=== PATIENT | female | born 1975 | race African-American/Black ===

== ENCOUNTER 2016-11-28 17:07 | Emergency (ER) | payer SELFPAY ==
[~2016-11-28] VITALS: Ht 149.9 cm; Wt 68.0 kg
[~2016-11-28 17:07] MED LIST: CIPR-9 PO
[2016-11-28 17:09] VITALS: BP 147/81; PULSE 76; RESP 20; TEMP 98.3; O2SAT 97
[2016-11-28] MEDS ORDERED: SODIUM CHLORIDE 0.9% FLUSH 5 ML FLUSH IVF PRN (18:00)
[2016-11-28] MEDS ORDERED: cefTRIAXone INJ 1,000 MG in SODIUM CHLORIDE 0.9% INJ 100 ML IV ONE (18:00)
[2016-11-28] MEDS ORDERED: KETOROLAC TROMETHAMINE 30 MG/ML (IVP) VIAL IVP ONE (18:00)
--- NOTE | 2016-11-28 18:25 | PD ---
HPI Chief Complaint: Eye Problems/Injury Time Seen by Provider: 18:15 Travel History International Travel<30 days: No Contact w/Intl Traveler<30days: No Traveled to known affect area: No History of Present Illness HPI 41-year-old female coming in with four-day history of right eye pain, swelling, and drainage. Patient states her is currently being treated for conjunctivitis with an antibiotic ointment. Patient states she started with symptoms 4 days ago but got suddenly worse in the last 24 hours. Patient has discomfort in both eyes but more the right than the left. Both lower eyelids are swollen and erythematous to the point of swollen shut. There is purulent drainage from the eye. Patient states she has blurry vision from that eye. Patient states she has pain in the right protestant and forehead extending down into the right neck. Patient has had chills but is unsure fever. She denies throat or difficulty swallowing. She denies dental pain. She denies ear pain. She denies rash on the scalp. She denies nausea, vomiting, or diarrhea. She denies cough. She is allergic to Tylenol with codeine and Vicodin. PFSH Past Medical History Hypertension: Yes (PREV HX, NO MEDS CURRENTLY) Tetanus Vaccination: Unknown Influenza Vaccination: No ?: Not LMP: 10/31/16 : 2 Para: 2 Tubal Ligation: Yes Past Surgical History Section: Yes (X 2) Cholecystectomy: Yes Gynecologic Surgery: Yes (OVARY AND TUBE REMOVED FROM ONE SIDE, NOT SURE WHICH) Social History Alcohol Use: No Tobacco Use: Yes (1/2 PPD) Substance Use: Yes (MARIJUANA OCCASIONALLY) Allergies-Medications (Allergen,Severity, Reaction): Coded Allergies: Tylenol/Codeine (Verified Adverse Reaction, Severe, 11/28/16) GI CRAMPING Vicodin (Verified Adverse Reaction, Severe, 11/28/16) GI CRAMPING Reported Meds & Prescriptions Reported Meds & Active Scripts Active No Active Prescriptions or Reported Medications Review of Systems General / Constitutional: Positive: Chills, No: Fever Eyes: Positive: Blurred Vision, Photophobia, Drainage, Redness, Pain, No: Foreign Body Sensation, Tearing, Blind Spots, Visual changes, Blindness, Other HENT: Positive: Headaches, No: Vertigo, Lightheadedness, Sore Throat, Rhinitis , Rhinorrhea, Congestion, Nosebleed, Neck Stiffness, Neck Pain, Ear Discharge, Earache Cardiovascular: No: Chest Pain or Discomfort Respiratory: No: Cough, Shortness of Breath, Wheezing Gastrointestinal: No: Nausea, Vomiting, Diarrhea, Abdominal Pain Genitourinary: No: Dysuria Musculoskeletal: No: Pain Skin: No Rash Neurologic: No: Weakness Psychiatric: No: Depression Endocrine: No: Polydipsia Hematologic/Lymphatic: No: Easy Bruising Physical Exam Narrative GENERAL: Patient is an mild to moderate distress. SKIN: Warm and dry. Normal color. Normal turgor. Both upper and lower eyelids of the right eye are erythematous and swollen. HEAD: Atraumatic. Normocephalic. Patient complains of tenderness with palpation to the right forehead and temporal region extending into the lateral maxillary cheek. EYES: Pupils equal and round. No scleral icterus. Patient has severe conjunctival injection and swelling of the right eye with what appears to be some conjunctival hematoma. There is purulent drainage from the right eye. The cornea appears clear, and the pupil is reactive. There is no ulcerations appreciated. The left eye has injected conjunctiva, but no significant swelling or drainage noted at this time. ENT: No nasal bleeding or discharge. Mucous membranes pink and moist. TMs are clear bilaterally. Pharynx is clear. No significant lymphadenopathy. NECK: Trachea midline. No JVD. Neck is supple and nontender. No significant lymphadenopathy. CARDIOVASCULAR: Regular rate and rhythm. No murmurs appreciated this time. RESPIRATORY: No accessory muscle use. Clear to auscultation. Breath sounds equal bilaterally. GASTROINTESTINAL: Abdomen soft, non-tender, nondistended. Hepatic and splenic margins not palpable. MUSCULOSKELETAL: Extremities without clubbing, cyanosis, or edema. No obvious deformities. NEUROLOGICAL: Awake and alert. No obvious cranial nerve deficits. Motor grossly within normal limits. Five out of 5 muscle strength in the arms and legs. Normal speech. PSYCHIATRIC: Appropriate mood and affect; insight and judgment normal. Data Data Last Documented VS Vital Signs Date Time Temp Pulse Resp B/P Pulse Ox O2 Delivery O2 Flow Rate FiO2 11/28/16 17:09 98.3 76 20 147/81 97 Room Air Orders Complete Blood Count With Diff (11/28/16 17:54) Comprehensive Metabolic Panel (11/28/16 17:54) Lactic Acid (11/28/16 17:54) Prothrombin Time / Inr (Pt) (11/28/16 17:54) Act Partial Throm Time (Ptt) (11/28/16 17:54) Iv Access Insert/Monitor (11/28/16 17:54) Ecg Monitoring (11/28/16 17:54) Oximetry (11/28/16 17:54) NPO (11/28/16 17:54) Sodium Chloride 0.9% Flush (Ns Flush) (11/28/16 18:00) Ketorolac Inj (Toradol Inj) (11/28/16 18:00) Ct Facial Bones W Iv Contrast (11/28/16 ) Blood Culture (11/28/16 17:54) Ceftriaxone Inj (Rocephin Inj) (11/28/16 18:00) Iohexol 350 Inj (Omnipaque 350 Inj) (11/28/16 18:43) Labs Laboratory Tests Test 11/28/16 18:20 White Blood Count 7.3 TH/MM3 Red Blood Count 4.49 MIL/MM3 Hemoglobin 14.4 GM/DL Hematocrit 42.0 % Mean Corpuscular Volume 93.6 FL Mean Corpuscular Hemoglobin 32.2 PG Mean Corpuscular Hemoglobin 34.4 % Concent Red Cell Distribution Width 13.9 % Platelet Count 260 TH/MM3 Mean Platelet Volume 7.9 FL Neutrophils (%) (Auto) 52.1 % Lymphocytes (%) (Auto) 38.5 % Monocytes (%) (Auto) 8.6 % Eosinophils (%) (Auto) 0.5 % Basophils (%) (Auto) 0.3 % Neutrophils # (Auto) 3.8 TH/MM3 Lymphocytes # (Auto) 2.8 TH/MM3 Monocytes # (Auto) 0.6 TH/MM3 Eosinophils # (Auto) 0.0 TH/MM3 Basophils # (Auto) 0.0 TH/MM3 CBC Comment DIFF FINAL Differential Comment MDM Medical Decision Making Medical Screen Exam Complete: Yes Emergency Medical Condition: Yes Differential Diagnosis Severe right eye conjunctivitis. Retro-orbital abscess. Facial cellulitis. Possible shingles in the eye. Risk of sepsis. Narrative Course Patient is medically stable although uncomfortable on first exam. Patient is discussed and examined with Dr. Anderson. Labs ordered including CBC, CMP, lactic acid, blood cultures 2, and chlamydia culture of the right eye. IV access is obtained patient is given 1000 mg Rocephin IV as well as [address] of the facial bones with IV contrast is ordered to rule out retro-orbital abscess. Dr. Covington is the head of [employer] special education teacher this evening. I plan to call him once I get the labs and CT results. 1900 hrs. care is given over to Bandar Meza PAC. Patient is discussed and CT scan is discussed as well. Reassessment of the patient at that time shows right actually look improved after the Rocephin and ketorolac. Patient's disposition will be determined by Bandar Meza PAC. Scripts No Active Prescriptions or Reported Meds Condition: Stable Edwin Salinas Nov 28, 2016 18:25
[2016-11-28] MEDS ORDERED: IOHEXOL 350 MG/ML 10 ML VIAL (for RAD DIAG) IV ONE (18:43)
[2016-11-28 18:53] LABS: AUTOMATED NEUTROPHIL # 3.8 TH/MM3 (1.8-7.7); BASOPHIL % 0.3 % (0.0-2.0); EOSINOPHIL % 0.5 % (0.0-4.0); HEMO FLAGS DIFF FINAL; LYMPH % 38.5 % (9.0-44.0); LYMPHOCYTE # 2.8 TH/MM3 (1.0-4.8); MEAN CELL VOLUME 93.6 FL (80.0-100.0); MEAN CORPUSCULAR HEMOGLOBIN 32.2 PG (27.0-34.0); MEAN CORPUSCULAR HGB CONC 34.4 % (32.0-36.0); MONO % 8.6 % (0.0-8.0); NEUT % 52.1 % (16.0-70.0); PLATELET COUNT 260 TH/MM3 (150-450); RED BLOOD COUNT 4.49 MIL/MM3 (4.00-5.30); RED CELL DISTRIBUTION WIDTH 13.9 % (11.6-17.2); WHITE BLOOD COUNT 7.3 TH/MM3 (4.0-11.0)
--- NOTE | 2016-11-28 18:56 | RADRPT ---
EXAM DATE/TIME: 11/28/2016 18:38 [facility] COMPARISON: No previous studies available for comparison. INDICATIONS : Right-sided facial swelling around eye with drainage. IV CONTRAST: 75 cc Omnipaque 350 (iohexol) IV RADIATION DOSE: 38.16 CTDIvol (mGy) MEDICAL HISTORY : None SURGICAL HISTORY : None. ENCOUNTER: Initial ACUITY: 3 days PAIN SCALE: 4/10 LOCATION: Right distal TECHNIQUE: Volumetric scanning of the facial bones was performed. Using automated exposure control and adjustme nt of the mA and/or kV according to patient size, radiation dose was kept as low as reasonably achiev able to obtain optimal diagnostic quality images. FINDINGS: There is preseptal swelling on the right side without evidence for post septal extension. There is mi ld mucoperiosteal thickening within the left sphenoid sinus and the rest of the sinuses are clear. Th ere are a few slightly prominent lymph nodes on the right side the largest one measures 1.4 cm in siz e in the submandibular location may be reactive. The submandibular glands, parotid and thyroid glands appear grossly intact. No definite fracture is seen for technique. CONCLUSION: Preseptal swelling on the right without evidence for abscess or post septal extension and probable re active lymph nodes on the right side. Skylar Hardin MD on November 28, 2016 at 18:51 Board Certified Radiologist. This report was verified electronically.
[2016-11-28 19:09] LABS: APTT (PATIENT) 27.1 SEC (24.3-30.1); INTERNATIONAL NORMALIZED RATIO 0.9 RATIO
[2016-11-28 19:31] LABS: BICARBONATE 18.5 MEQ/L (21.0-32.0); TOTAL BILIRUBIN ADULT 0.2 MG/DL (0.2-1.0)
--- NOTE | 2016-11-28 19:33 | PD ---
Data Data Last Documented VS Vital Signs Date Time Temp Pulse Resp B/P Pulse Ox O2 Delivery O2 Flow Rate FiO2 11/29/16 00:08 79 17 147/82 98 11/28/16 17:09 98.3 Room Air Orders Complete Blood Count With Diff (11/28/16 17:54) Comprehensive Metabolic Panel (11/28/16 17:54) Lactic Acid (11/28/16 17:54) Prothrombin Time / Inr (Pt) (11/28/16 17:54) Act Partial Throm Time (Ptt) (11/28/16 17:54) Iv Access Insert/Monitor (11/28/16 17:54) Ecg Monitoring (11/28/16 17:54) Oximetry (11/28/16 17:54) NPO (11/28/16 17:54) Sodium Chloride 0.9% Flush (Ns Flush) (11/28/16 18:00) Ketorolac Inj (Toradol Inj) (11/28/16 18:00) Ct Facial Bones W Iv Contrast (11/28/16 ) Blood Culture (11/28/16 17:54) Ceftriaxone Inj (Rocephin Inj) (11/28/16 18:00) Iohexol 350 Inj (Omnipaque 350 Inj) (11/28/16 18:43) Gc And Chlamydia Pcr (11/28/16 19:33) Basic Metabolic Panel (Bmp) (11/28/16 19:57) Magnesium (Mg) (11/28/16 20:06) Diphenhydramine Inj (Benadryl Inj) (11/28/16 21:00) Dexamethasone Inj (Decadron Inj) (11/28/16 21:00) Mandatory Outpatient Referral (11/29/16 00:08) Labs Laboratory Tests Test 11/28/16 11/28/16 11/28/16 18:20 19:45 20:30 White Blood Count 7.3 TH/MM3 Red Blood Count 4.49 MIL/MM3 Hemoglobin 14.4 GM/DL Hematocrit 42.0 % Mean Corpuscular Volume 93.6 FL Mean Corpuscular Hemoglobin 32.2 PG Mean Corpuscular Hemoglobin 34.4 % Concent Red Cell Distribution Width 13.9 % Platelet Count 260 TH/MM3 Mean Platelet Volume 7.9 FL Neutrophils (%) (Auto) 52.1 % Lymphocytes (%) (Auto) 38.5 % Monocytes (%) (Auto) 8.6 % Eosinophils (%) (Auto) 0.5 % Basophils (%) (Auto) 0.3 % Neutrophils # (Auto) 3.8 TH/MM3 Lymphocytes # (Auto) 2.8 TH/MM3 Monocytes # (Auto) 0.6 TH/MM3 Eosinophils # (Auto) 0.0 TH/MM3 Basophils # (Auto) 0.0 TH/MM3 CBC Comment DIFF FINAL Differential Comment Prothrombin Time 10.0 SEC Prothromb Time International 0.9 RATIO Ratio Activated Partial 27.1 SEC Thromboplast Time Sodium Level 143 MEQ/L 139 MEQ/L Potassium Level 2.8 MEQ/L 3.5 MEQ/L Chloride Level 115 MEQ/L 108 MEQ/L Carbon Dioxide Level 18.5 MEQ/L 24.0 MEQ/L Anion Gap 10 MEQ/L 7 MEQ/L Blood Urea Nitrogen 5 MG/DL 7 MG/DL Creatinine 0.44 MG/DL 0.62 MG/DL Estimat Glomerular Filtration 189 ML/MIN 127 ML/MIN Rate Random Glucose 70 MG/DL 82 MG/DL Lactic Acid Level 0.8 mmol/L Calcium Level 6.6 MG/DL 8.5 MG/DL Protein Corrected Calcium 7.4 MG/DL Total Bilirubin 0.2 MG/DL Aspartate Amino Transf 11 U/L (AST/SGOT) Alanine Aminotransferase 22 U/L (ALT/SGPT) Alkaline Phosphatase 54 U/L Total Protein 5.5 GM/DL Albumin 2.9 GM/DL Chlamydia trachomatis DNA NOT DETECTED (PCR) Neisseria gonorrhoeae DNA NOT DETECTED (PCR) Magnesium Level 1.8 MG/DL MDM Supervised Visit with HOPE: Yes Narrative Course I, Dr. Anderson have reviewed the advance practice practitioner's documentation and am in agreement, met with the patient face to face, made the diagnosis, and the medical decision making was done by me. *My assessment and Findings: Patient is a fairly significant chemosis preseptal cellulitis of the right eye. She is very mild clear discharge. She is nontoxic appearance. She was stained with fluorescin by Bandar ENGLE showing no floor seen uptake. My concern is for an early chlamydial or gonorrheal conjunctivitis. She has been tested by swab and PCR here in the emergency department and are negative. Discussed with Bandar Jennings that given these tests are negative she could be started on both by mouth antibiotics as well as eye drops and follow-up as an outpatient. Scripts Polymyxin B-Trimethoprim Opth Drops (Polytrim Opth Drops)10,000-0.1 Unit/Ml-% Soln1 Drop EACH EYE 4-6HR 7 Days Prov:Jef Anderson MD 11/28/16 Amoxicillin-Clavulanate (Augmentin)875-125 mg [id number] Mg PO BID #20 TAB not for use in CrCl <30 ml/min. Prov:Jef Anderson MD 11/28/16 Condition: Stable Jef Anderson MD Nov 28, 2016 19:33
[2016-11-28 19:35] VITALS: RESP 18
[2016-11-28 19:50] LABS: CALCIUM-PROTEIN CORRECTED 7.4 MG/DL (8.5-10.1); POTASSIUM 2.8 MEQ/L (3.5-5.1)
[2016-11-28] MEDS ORDERED: diphenhydrAMINE HCL 50 MG/ML VIAL IV PUSH ONE (21:00)
[2016-11-28] MEDS ORDERED: DEXAMETHASONE SOD PHOS 20 MG/5 ML VIAL IV PUSH ONE (21:00)
[2016-11-28 22:09] LABS: POTASSIUM 3.5 MEQ/L (3.5-5.1)
[2016-11-28] MEDS ORDERED: POLY10O EACH EYE (22:20)
[2016-11-28] MEDS ORDERED: AUGM875T PO (22:20)
[2016-11-28 23:46] LABS: CHLAMYDIA PCR NOT DETECTED (NOT DETECT); NEISSERIA PCR NOT DETECTED (NOT DETECT)
--- NOTE | 2016-11-29 00:07 | PD ---
Physical Exam Date Seen by Provider: Nov 29, 2016 Time Seen by Provider: 00:03 Narrative HEENT: Patient has swelling to the upper or lower eyelid. There is mild erythema and tenderness. The eye is extremely injected. She has chemosis of the sclera and a near 100% subconjunctival hemorrhage. Fluorescein stain is negative for corneal abrasion, ulceration or dendrites. She has a thin mucoid drainage. Lids are flipped and no foreign body seen. Data Data Last Documented VS Vital Signs Date Time Temp Pulse Resp B/P Pulse Ox O2 Delivery O2 Flow Rate FiO2 11/28/16 17:09 98.3 76 20 147/81 97 Room Air Orders Complete Blood Count With Diff (11/28/16 17:54) Comprehensive Metabolic Panel (11/28/16 17:54) Lactic Acid (11/28/16 17:54) Prothrombin Time / Inr (Pt) (11/28/16 17:54) Act Partial Throm Time (Ptt) (11/28/16 17:54) Iv Access Insert/Monitor (11/28/16 17:54) Ecg Monitoring (11/28/16 17:54) Oximetry (11/28/16 17:54) NPO (11/28/16 17:54) Sodium Chloride 0.9% Flush (Ns Flush) (11/28/16 18:00) Ketorolac Inj (Toradol Inj) (11/28/16 18:00) Ct Facial Bones W Iv Contrast (11/28/16 ) Blood Culture (11/28/16 17:54) Ceftriaxone Inj (Rocephin Inj) (11/28/16 18:00) Iohexol 350 Inj (Omnipaque 350 Inj) (11/28/16 18:43) Gc And Chlamydia Pcr (11/28/16 19:33) Basic Metabolic Panel (Bmp) (11/28/16 19:57) Magnesium (Mg) (11/28/16 20:06) Diphenhydramine Inj (Benadryl Inj) (11/28/16 21:00) Dexamethasone Inj (Decadron Inj) (11/28/16 21:00) Labs Laboratory Tests Test 11/28/16 11/28/16 11/28/16 18:20 19:45 20:30 White Blood Count 7.3 TH/MM3 Red Blood Count 4.49 MIL/MM3 Hemoglobin 14.4 GM/DL Hematocrit 42.0 % Mean Corpuscular Volume 93.6 FL Mean Corpuscular Hemoglobin 32.2 PG Mean Corpuscular Hemoglobin 34.4 % Concent Red Cell Distribution Width 13.9 % Platelet Count 260 TH/MM3 Mean Platelet Volume 7.9 FL Neutrophils (%) (Auto) 52.1 % Lymphocytes (%) (Auto) 38.5 % Monocytes (%) (Auto) 8.6 % Eosinophils (%) (Auto) 0.5 % Basophils (%) (Auto) 0.3 % Neutrophils # (Auto) 3.8 TH/MM3 Lymphocytes # (Auto) 2.8 TH/MM3 Monocytes # (Auto) 0.6 TH/MM3 Eosinophils # (Auto) 0.0 TH/MM3 Basophils # (Auto) 0.0 TH/MM3 CBC Comment DIFF FINAL Differential Comment Prothrombin Time 10.0 SEC Prothromb Time International 0.9 RATIO Ratio Activated Partial 27.1 SEC Thromboplast Time Sodium Level 143 MEQ/L 139 MEQ/L Potassium Level 2.8 MEQ/L 3.5 MEQ/L Chloride Level 115 MEQ/L 108 MEQ/L Carbon Dioxide Level 18.5 MEQ/L 24.0 MEQ/L Anion Gap 10 MEQ/L 7 MEQ/L Blood Urea Nitrogen 5 MG/DL 7 MG/DL Creatinine 0.44 MG/DL 0.62 MG/DL Estimat Glomerular Filtration 189 ML/MIN 127 ML/MIN Rate Random Glucose 70 MG/DL 82 MG/DL Lactic Acid Level 0.8 mmol/L Calcium Level 6.6 MG/DL 8.5 MG/DL Protein Corrected Calcium 7.4 MG/DL Total Bilirubin 0.2 MG/DL Aspartate Amino Transf 11 U/L (AST/SGOT) Alanine Aminotransferase 22 U/L (ALT/SGPT) Alkaline Phosphatase 54 U/L Total Protein 5.5 GM/DL Albumin 2.9 GM/DL Chlamydia trachomatis DNA NOT DETECTED (PCR) Neisseria gonorrhoeae DNA NOT DETECTED (PCR) Magnesium Level 1.8 MG/DL MDM Medical Record Reviewed: Yes Supervised Visit with HOPE: Yes Differential Diagnosis MDM: High Differential diagnoses: Acute conjunctivitis (bacterial, viral, allergic, traumatic), glaucoma, iritis, traumatic globe injury, foreign body, corneal abrasion, corneal ulcer, diabetic retinopathy, photokeratitis, herpes keratitis , CMV retinitis Narrative Course Patient has been given Rocephin and Zithromax. I have added in 10 mg of Decadron and 15 mg of Benadryl. Patient's GC and chlamydia are negative. Her CBC, chemistry and lactate are negative. CAT scan is unremarkable for abscess. I suspect this is a bacterial conjunctivitis in the patient has rubbed her eye excessively causing edema and subconjunctival hemorrhage. I do not believe that this is a true preseptal cellulitis. The patient is given prescriptions for Augmentin and Polytrim ophthalmic drops. She is advised to follow-up with Dr. Gillis the board machine set up operator on-call on Thursday or return to the ER if any problems. A mandatory follow-up has been ordered Diagnosis Primary Impression: Facial cellulitis Additional Impression: Conjunctivitis Qualified Code: H10.31 - Acute bacterial conjunctivitis of right eye Referrals: Chaitanya Covington MD 3 days Patient Instructions: General Instructions Additional Instruction: Rest. Wash eyelashes with baby shampoo 3 times daily. Warm compresses. Polytrim ophthalmic drops. Augmentin. Followup with Dr. Lopez the board machine set up operator on Thursday.. Follow-up with a medical doctor one week. Return to the ER if any problems. Med/Other Pt SpecificInfo: Prescription(s) given Scripts Polymyxin B-Trimethoprim Opth Drops (Polytrim Opth Drops)10,000-0.1 Unit/Ml-% Soln1 Drop EACH EYE 4-6HR 7 Days Prov:Jef Anderson MD 11/28/16 Amoxicillin-Clavulanate (Augmentin)875-125 mg [id number] Mg PO BID #20 TAB not for use in CrCl <30 ml/min. Prov:Jef Anderson MD 11/28/16 Disposition: 01 DISCHARGE HOME Condition: Stable Bobo Bustos Nov 29, 2016 00:07
[2016-11-29 00:08] VITALS: BP 147/82
== END 2016-11-29 00:21 | disposition home or self-care (01) ==
LOC: NEPB 17:07
DX: L03.211 Cellulitis of face (principal); H10.31 Unspecified acute conjunctivitis, right eye; H11.421 Conjunctival edema, right eye; H11.31 Conjunctival hemorrhage, right eye; R51 Headache; I10 Essential (primary) hypertension; F17.200 Nicotine dependence, unspecified, uncomplicated
CPT/HCPCS: 70487; 80048; 80053; 83605; 83735; 85025; 85610; 85730; 87040; 87491; 87591; 96365; 96375; 99284; J0696; J1100; J1200; J1885; Q9967